=== PATIENT | male | born 1980 | race African-American/Black ===

== ENCOUNTER 2018-01-09 17:07 | Emergency (ER) | payer BC ==
[~2018-01-09] VITALS: Ht 172.7 cm; Wt 97.5 kg
--- NOTE | 2018-01-09 17:28 | PHYS DOC ---
Adult General Chief Complaint Chief Complaint: MULTIPLE TRAUMA/FALL HPI HPI Patient is a 37 year old male presents to the ED complaining of fall 3 hours ago. Patient states he was up on a 15 foot ladder and slid down the ladder. States he did not have a free fall off the ladder but instead slid down. States he landed on his right ankle. Discussed pain as sharp. Rates pain as 8 out of 10. States he was able to walk somewhat after the accident. States he went home and drank a sixpack of beer but thought he would come get checked out. Denies weakness, paresthesias, fever, laceration, head/neck injury, LOC, vision changes , nausea/vomiting or dizziness. Review of Systems Review of Systems Constitutional: Denies fever or chills [] Eyes: Denies change in visual acuity, redness, or eye pain [] HENT: Denies nasal congestion or sore throat [] Respiratory: Denies cough or shortness of breath [] Cardiovascular: No additional information not addressed in HPI [] GI: Denies abdominal pain, nausea, vomiting, bloody stools or diarrhea [] : Denies dysuria or hematuria [] Musculoskeletal: Complains of right foot pain/injury. Denies back pain. Integument: Denies rash or skin lesions [] Neurologic: Denies headache, focal weakness or sensory changes [] All other systems were reviewed and found to be within normal limits, except as documented in this note. Current Medications Current Medications Current Medications Medications (Trade) Dose Ordered Sig/Sabi Start Time Stop Time Status Last Admin Dose Admin Acetaminophen/ Hydrocodone Bitart (Lortab 5/325) 1 tab 1X ONCE 01/09/18 19:45 01/09/18 19:46 DC 01/09/18 19:20 1 TAB Allergies Allergies Allergies Coded Allergies Type Severity Reaction Last Updated Verified No Known Drug Allergies 01/09/18 No Physical Exam Physical Exam Constitutional: Well developed, well nourished, no acute distress, non-toxic appearance. [] HENT: Normocephalic, atraumatic. Neck: Normal range of motion, no tenderness, supple, no stridor. [] Cardiovascular:Heart rate regular rhythm, no murmur [] Lungs & Thorax: Bilateral breath sounds clear to auscultation [] Abdomen: Bowel sounds normal, soft, no tenderness, no masses, no pulsatile masses. [] Skin: Warm, dry, no erythema, no rash. [] Back: No tenderness, no CVA tenderness. [] Extremities: mild right ankle/foot swelling/tenderness, no calf tenderness. no cyanosis, no clubbing, ROM intact, no edema. [] Neurologic: Alert and oriented X 3, normal motor function, normal sensory function, no focal deficits noted. [] Psychologic: Affect normal, judgement normal, mood normal. [] Current Patient Data Vital Signs Vital Signs Date Time Temp Pulse Resp B/P (MAP) Pulse Ox O2 Delivery O2 Flow Rate FiO2 01/09/18 19:12 102 130/67 (88) 96 Room Air 01/09/18 17:10 98.5 16 98.5 EKG EKG [] Radiology/Procedures Radiology/Procedures [] Course & Med Decision Making Course & Med Decision Making Pertinent Labs and Imaging studies reviewed. (See chart for details) Avulsion fracture to medial ankle seen on imaging. Reviewed by Dr. Jensen. []Discussed imaging findings with patient. Patient's pain improved. Splint placed. Neurovascular intact post placement. Discussed follow-up with orthopedics this week. Provided contact information/education. Discussed reasons to return to the ED. Patient understands and agrees with plan. Staff Physician Addendum: I was working in the ER during the course of this patient's visit. I was available for consultation as needed, but I was not directly involved in the care of this patient. Dragon Disclaimer Dragon Disclaimer This electronic medical record was generated, in whole or in part, using a voice recognition dictation system. Departure Departure Impression: Primary Impression: Ankle fracture Disposition: 01 HOME, SELF-CARE Condition: IMPROVED Referrals: ARIELA SAENZ MD Patient Instructions: Ankle Fracture Scripts Ibuprofen (IBUPROFEN) 800 Mg Tablet 800 MG PO PRN Q6HRS PRN for INFLAMMATION, #14 TAB Prov: MARGARET CLEMENS 01/09/18 MARGARET CLEMENS Jan 09, 2018 17:28 WOOD PEÑA MD Jan 11, 2018 06:30
[2018-01-09] MEDS ORDERED: IBUP-1060 PO (19:04)
[2018-01-09 19:12] VITALS: BP 130/67
[2018-01-09] MEDS: HYDROcodone/APAP 5/325MG 1 TAB TABLET PO ONE (19:20)
[2018-01-09] MEDS ORDERED: HYDROcodone/APAP 5/325MG 1 TAB TABLET ONE (19:32)
[2018-01-09] MEDS ORDERED: HYDROcodone/APAP 5/325MG 1 TAB TABLET PO ONE (19:45)
--- NOTE | 2018-01-09 23:36 | RAD ---
Exam performed: 3 views ankle and right foot 3 views. Indication: Right ankle pain status post fall off the ladder. Date of Service: 01/09/2018. Comparison: None available X-ray right ankle and foot findings: AP, lateral and oblique views of the right ankle and AP, lateral and oblique views of the right foot are obtained. Normal alignment of the ankle mortise an foot is preserved. There is no acute fracture or dislocation. There is diffuse soft tissue swelling. A linear density seen projecting in the soft tissues of the right ankle laterally suggests a small foreign body. Impression: No acute bony abnormality seen in the right foot and ankle. Suspected soft tissue foreign body. Electronically signed by: Acacia Suh MD (01/09/2018 11:33 PM) [facility]
== END 2018-01-09 19:20 | disposition home or self-care (01) ==
LOC: ER 17:07
DX: S82.891A Other fracture of right lower leg, initial encounter for closed fracture (principal); W11.XXXA Fall on and from ladder, initial encounter; Y93.89 Activity, other specified; Y92.89 Other specified places as the place of occurrence of the external cause; Y99.8 Other external cause status
CPT/HCPCS: 29515; 73610; 73630; 99284